=== PATIENT | male | born 1955 | race Caucasian/White ===

== ENCOUNTER 2022-07-15 09:59 | Emergency (ER) | payer OTHER, SELFPAY ==
[2022-07-15 10:05] VITALS: BP 116/83; PULSE 94; RESP 16; TEMP 36.2; O2SAT 100; BMI 26.6
[2022-07-15 10:07] VITALS: BP 116/83; PULSE 94; RESP 16; TEMP 36.2; O2SAT 100
[2022-07-15 10:10] VITALS: O2SAT 100
--- NOTE | 2022-07-15 10:31 | CT_ITS ---
STUDY: CTA CHEST REASON FOR EXAM: Male, 67 years old. 2 day history of shortness of breath. History of DVT. RADIATION DOSAGE (If Supplied By Facility): CTDIvol = ( 15.17 ) mGy, DLP = ( 1933.98 ) mGycm TECHNIQUE: The examination was performed with the intravenous administration of Oral and IV Gastrografin and 100mL Isovue-370. Post-processing of the angiographic images was performed, with multiplanar reformation and 3D reconstruction. Individualized dose optimization techniques were used for this CT. COMPARISON: None. FINDINGS: Normal enhancement of the main pulmonary artery and right and left pulmonary arteries. Normal enhancement of the bilateral peripheral pulmonary arteries. There is no demonstrated pulmonary embolism. Normal thoracic aorta and visualized great vessels. There is no demonstrated aortic dissection. Normal heart and pericardium. There are visualized mediastinal lymph nodes, which are within normal size limits, and with normal morphology. Normal hilar regions. Normal visualized trachea and bronchi. The lungs are well expanded. Normal pulmonary parenchyma. Normal pleura. Normal chest wall structures. There are degenerative changes of thoracic spine. 3.3 cm x 3.2 cm cyst in the upper pole of the left kidney. Large amount of residual food particles within the fundal portion of the stomach. Small hiatal hernia. CT/CTA Chest W/WO Contrast IMPRESSION: No evidence of pulmonary embolism. Electronically Signed: Isael Cabello MD at 12:36 EDT ,
--- NOTE | 2022-07-15 10:32 | CT_ITS ---
STUDY: CT ABDOMEN AND PELVIS WITH CONTRAST REASON FOR EXAM: Male, 67 years old. Abdominal pain -- IV PO Contrast. History of melanoma. RADIATION DOSAGE (If Supplied By Facility): CTDIvol = ( 15.17 ) mGy, DLP = ( 1933.98 ) mGycm TECHNIQUE: Transaxial images were obtained from the dome of the diaphragm to the symphysis pubis without oral contrast. Oral and amp; IV Gastrografin and amp; 100mL Isovue-370 was administered. Sagittal and coronal images were reconstructed. Individualized dose optimization techniques were used for this CT. COMPARISON: None. FINDINGS: The visualized lung bases are unremarkable. The visualized portions of the heart are within normal limits. There is decreased attenuation of the liver consistent with steatosis. 6 mm cyst is seen in the superior aspect of the left lobe of the liver. Normal gallbladder and extrahepatic biliary system. Normal spleen. Normal pancreas. Normal bilateral adrenal glands. Punctate calculus in the upper pole calyx of the right kidney. There is a 3.4 cm x 3.5 cm cyst in the upper pole of the left kidney. There is a small hiatal hernia. The stomach is distended with residual food particles especially in the fundal portion. The fundus lies along the posterior aspect of the abdomen. Normal small intestine. There are scattered colonic diverticula consistent with diverticulosis. The appendix is visualized and appears normal. Normal abdominal aorta. Normal inferior vena cava. Normal retroperitoneum. Normal urinary bladder. There is heterogeneous enlargement of the prostate gland. The prostate measures 5.3 cm x 5.4 cm x 6.7 cm. This causes indentation of the bladder base. The superior aspect of the prostate protrudes at the base of the bladder is of cystic nature. Biopsy recommended. There is a right-sided inguinal hernia containing adipose tissue. There are degenerative changes of the visualized lumbar spine. CT/Abdomen/Pelvis WITH Contrast IMPRESSION: Fatty infiltration of the liver. Heterogeneous enlargement of prostate as described. Biopsy recommended. Left renal cyst. Electronically Signed: Isael Cabello MD at 12:34 EDT ,
--- NOTE | 2022-07-15 10:33 | EDS_ITS ---
HPI History of Present Illness Chief Complaint: Shortness of Breath Narrative Narrative: Patient was at work had an episode where he felt short of breath, possibly pleuritic component to it, this was happening while he was somewhat exerting himself but no more than usual. He has now asymptomatic. He also had some worsening shortness of breath while he was mowing his lawn this weekend. He has a history of melanoma which was treated with oral chemotherapy however he stopped his chemotherapy a month short and has not followed up with [facility] since then. This was about 3 months ago. He is also complaining of some epigastric pain and indigestion for the past few months. No fever or chills. He is denying back pain or tearing sensation. No lower extremity edema or calf pain. [facility] Medical History DVT (deep venous thrombosis) Myeloma Home Medications apixaban 5 mg tablet (Eliquis) 5 mg PO DAILY 07/15/22 [History Last Taken Unknown] metoclopramide HCl 10 mg tablet (Reglan) 10 mg PO Q6H PRN nausea and vomiting #30 tabs 07/15/22 [Rx Last Taken Unknown] omeprazole 20 mg capsule,delayed release 20 mg PO DAILY #30 caps 07/15/22 [Rx Last Taken Unknown] Allergy/AdvReac Type Severity Reaction Status Date / Time No Known Allergies Allergy Verified 07/15/22 10:09 Social History Smoking Status: Former smoker ROS ROS ED ROS Narrative Past medical history: Reviewed at the bedside and in Medications: Reviewed Social history: Noncontributory Review of systems: All systems negative except as indicated General: No fever Eyes: No visual changes ENT: No upper airway congestion, normal voice Neck: No neck pain Cardiovascular: No chest pain Respiratory: Shortness of breath as in HPI Gastrointestinal: No abdominal pain, nausea vomiting or diarrhea Genitourinary: No dysuria Musculoskeletal: Denies myalgias no difficulty with ambulation Skin: No rash Neurological: No memory loss, confusion or any focal weakness Psych: No recent behavioral changes Hematologic: No easy bleeding or easy bruising EXAM Physical Exam Narrative Exam Narrative: Physical exam General: Well nourished, Well developed, No Acute Distress Head: Normocephalic, Atraumatic Eyes: Conjunctiva not pale ENT: Moist mucous membranes Neck: Supple, Nontender, No lymphadenopathy Cardiovascular: Regular rate, Regular rhythm Respiratory: No distress, CTA bilaterally Abdomen: Soft, Nontender, Nondistended Back: Nontender, Normal Inspection. Negative for: CVA tenderness Extremities: Nontender, No edema. 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 No calf pain. Skin: Normal color, No rash Neurological: Alert, Normal Strength, Normal Sensation Psychological: Normal affect Const Vital Signs: 07/15/22 10:05 07/15/22 10:07 07/15/22 10:10 Temperature 97.2 F L 97.2 F L Temperature Source Temporal Temporal Pulse Rate 94 94 Respiratory Rate 16 16 Respiratory Effort Normal Non-Labored Respiratory Depth Normal Respiratory Pattern Normal Blood Pressure 116/83 H 116/83 H Blood Pressure Mean 94 94 Pulse Ox 100 100 Oxygen Delivery Method Room Air Room Air Room Air 07/15/22 11:26 Temperature Temperature Source Pulse Rate 74 Respiratory Rate 16 Respiratory Effort Respiratory Depth Respiratory Pattern Blood Pressure 125/90 H Blood Pressure Mean 101 Pulse Ox 100 Oxygen Delivery Method Room Air MDM MDM MDM Narrative Medical decision making narrative: Patient's work-up is virtually unremarkable, there is evidence of elevated stomach contacts I worry about gastroparesis, I went back to talk to him he has been having epigastric pain and feels like he is bloated he is always full and he is not emptying. 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 He also is shown to have prostate hypertrophy, he is aware of this and has seen urology a few years ago he is encouraged to go again to get his PSA rechecked, again I will rerefer him even though he tells me he has a urologist just in case he cannot get into the same urologist as before. Lab Data Labs: Laboratory Results - last 24 hr 07/15/22 07/15/22 10:45 10:45 WBC 10.9 RBC 3.25 L Hgb 9.0 L Hct 28.1 L MCV 86.5 MCH 27.7 MCHC 32.0 RDW Std Deviation 48.4 H RDW Coeff of Orion 15.7 H Plt Count 379 MPV 8.8 Immature Gran % (Auto) 1.100 H Neut % (Auto) 73.8 H Lymph % (Auto) 13.0 L Calvert % (Auto) 11.0 H Eos % (Auto) 0.6 Baso % (Auto) 0.5 Absolute Neuts (auto) 8.1 H Absolute Lymphs (auto) 1.42 Nucleated RBC % 0 Sodium 137 Potassium 4.0 Chloride 103 Carbon Dioxide 25.0 Anion Gap 9 BUN 22 H Creatinine 0.81 Estim Creat Clear Calc 85.01 Est GFR (MDRD) Af Amer 123 Est GFR (MDRD) Non-Af 101 BUN/Creatinine Ratio 27.1 H Glucose 96 Calcium 8.0 L Total Bilirubin 0.30 AST 9 L ALT 10 L Alkaline Phosphatase 46 Troponin I High Sens 5 Total Protein 5.8 L Albumin 2.4 L Globulin 3.4 Albumin/Globulin Ratio 0.7 L Radiography Diagnostic Testing: Clinical Impression(s) from Imaging Studies Chest CTA 07/15/22 10:31 IMPRESSION: No evidence of pulmonary embolism. Electronically Signed: Isael Cabello MD at 12:36 EDT , Abdomen/Pelvis CT 07/15/22 10:32 IMPRESSION: Fatty infiltration of the liver. Heterogeneous enlargement of prostate as described. Biopsy recommended. Left renal cyst. Electronically Signed: Isael Cabello MD at 12:34 EDT , Discharge Plan Triage Chief Complaint: Shortness of Breath ED Provider: Eyal Arambula Dx/Rx/DC Orders Clinical Impression: Mild shortness of breath, Acute epigastric pain, Prostate hypertrophy Instructions: ED Epigastric Pain Uncertain Cause Prescriptions: New metoclopramide HCl [Reglan] 10 mg tablet 10 mg PO Q6H PRN (Reason: nausea and vomiting) Qty: 30 0RF omeprazole 20 mg capsule,delayed release(DR/EC) 20 mg PO DAILY Qty: 30 0RF No Action Eliquis 5 mg Tablet 5 mg PO DAILY Primary Care Provider: VIKA MCDOWELL Referrals: VIKA MCDOWELL MD [Primary Care Provider] - Kiran Blackwell MD [Med Staff - Active Staff] - 3-5 Days Friend,DO Johnnie [Med Staff - Active Staff] - 3-5 Days Activity Restrictions/Additional Instructions: Follow-up with urology so he can have your PSA checked again as well as your prostate. This is to ensure that you do not have cancer. Follow-up with GI for possible gastroparesis. Call your oncologist the [facility] she can get a work-up on your melanoma. Disposition Disposition: Home, Self Care
[2022-07-15 10:56] LABS: Absolute Lymphocyte Count 1.42 X10^3/uL (0.83-4.51); Absolute Neutrophil Count 8.1 X10^3/uL (2.0-7.7); Basophil# 0.05 X10^3/uL; Basophil% 0.5 % (0-1); Eosinophil# 0.07 X10^3/uL; Eosinophils% 0.6 % (0-5); Hematocrit 28.1 % (40-54); Lymphocyte # 1.42 X10^3/ul (0.83-4.51); Mean Corpuscular Hgb 27.7 pg (27.0-32.0); Mean Corpuscular Volume 86.5 fL (80-94); Mean Platelet Vol. 8.8 fl (6.2-12.0); NRBC Flagged by Analyzer 0 % (0-5); Neutrophil # 8.05 X10^3/uL (2.7-7.7); Neutrophil % 73.8 % (47-70); Platelet Count 379 K/mm3 (150-450); RBC Distribution Width CV 15.7 % (11.6-14.6); RBC Distribution Width SD 48.4 fl (35.1-43.9); Red Blood Count 3.25 M/mm3 (4.6-6.2); White Blood Count 10.9 K/mm3 (4.4-11.0)
[2022-07-15 11:15] LABS: ALB/GLOB Ratio 0.7 RATIO (0.9-2.4); AST(SGOT) 9 U/L (15-37); Alanine Aminotransfer ALT/SGPT 10 U/L (16-61); Albumin, Serum 2.4 g/dL (3.2-5.0); Alkaline Phosphatase 46 U/L (45-117); Anion Gap 9 (5-15); BUN 22 mg/dL (7-18); BUN/Creat Ratio 27.1 RATIO (10-20); Chloride 103 mmol/L (98-107); Creatinine, Serum 0.81 mg/dL (0.70-1.30); EST Glomerular Filtration Rate 101 mL/min (>60); Est Glom Filt Rate - Afr Amer 123 mL/min (>60); Estimated Creatinine Clearance 85.01 ml/min; Globulin 3.4 g/dL (2.2-4.2); Glucose 96 mg/dL (74-106); Protein, Total 5.8 g/dL (6.4-8.2); Sodium Level 137 mmol/L (136-145); Troponin-I HS 5 pg/mL (3.0-78.0)
[2022-07-15 11:26] VITALS: BP 125/90; PULSE 74; RESP 16; O2SAT 100
[2022-07-15 13:17] VITALS: BP 134/77; PULSE 76; RESP 15; O2SAT 98
== END 2022-07-15 13:18 | disposition home or self-care (01) ==
PROVIDERS: Emergency Provider Emergency Medicine; PCP Internal Medicine Cardiovascular Disease; Visit Provider Emergency Medicine
DX: R06.02 Shortness of breath (principal); R10.13 Epigastric pain; N40.0 Benign prostatic hyperplasia without lower urinary tract symptoms; Z79.01 Long term (current) use of anticoagulants; Z86.718 Personal history of other venous thrombosis and embolism; Z87.891 Personal history of nicotine dependence
CPT/HCPCS: 71275; 74177; 80053; 84484; 85025; 99285; Q9967